=== PATIENT | female | born 1935 | race Native Hawaiian/Other Pacific Islander ===

== ENCOUNTER 2017-04-24 11:10 | Outpatient (CLI) | payer OTHER ==
[~2017-04-24 11:10] MED LIST: ASPIRIN325 M1 OR; CARV3.12 PO; CLOP75TA2 PO; HYDR25TA60 PO; LIPITOR80 MG PO; LUMIGAN0.01 % OP; MICRO-K10 MEQ OR; NEXIUM40 M1 PO; RANO500T PO; VITAMIN B-COMPLEX OR; VITAMIN D400 UNIT OR
== END 2017-04-24 16:00 | disposition home or self-care (01) ==
LOC: US 11:10
DX: I65.29 Occlusion and stenosis of unspecified carotid artery (principal)

== ENCOUNTER 2017-11-30 13:01 | Outpatient (CLI) | payer OTHER | END 2017-11-30 19:32 | disposition home or self-care (01) | LOC: MRI 13:01 | DX: M54.5 Low back pain (principal); M54.16 Radiculopathy, lumbar region ==

== ENCOUNTER 2018-05-08 11:27 | Outpatient (CLI) | payer OTHER ==
[2018-05-08 11:56] LABS: POTASSIUM 4.3 mmol/L (3.6-5.2)
== END 2018-05-08 20:05 | disposition home or self-care (01) ==
LOC: LABW 11:27
PROVIDERS: Internal Medicine Cardiovascular Disease
DX: Z79.899 Other long term (current) drug therapy (principal); R06.02 Shortness of breath
CPT/HCPCS: 36415; 80048; 83880

== ENCOUNTER 2018-06-12 11:52 | Outpatient (CLI) | payer OTHER ==
[2018-06-12 12:36] LABS: POTASSIUM 4.5 mmol/L (3.6-5.2)
== END 2018-06-12 22:29 | disposition home or self-care (01) ==
LOC: LABW 11:52
PROVIDERS: Internal Medicine Cardiovascular Disease
DX: Z79.899 Other long term (current) drug therapy (principal); R06.09 Other forms of dyspnea
CPT/HCPCS: 36415; 80048; 83880

== ENCOUNTER 2019-03-23 06:52 | Observation (INO) | payer OTHER ==
[~2019-03-23] VITALS: Ht 167.6 cm; Wt 72.1 kg
[2019-03-23] VITALS (11 sets, daily range): BP systolic 120–201; BP diastolic 51–80; TEMP 97.5–98.3; Ht 167.6 cm; Wt 72.1 kg
[2019-03-23 07:20] LABS: SODIUM 138 mmol/L (136-145)
[2019-03-23 08:06] LABS: PLATELET COUNT 271 K/uL (152-353)
--- NOTE | 2019-03-23 15:03 | NUR ---
PT AMBULATED IN [place] WITH ASSISTANCE OF CANE APPROX 100 FEET DENIED ANY DIZZINESS OR LIGHT HEADEDNESS.
== END 2019-03-23 16:25 | disposition home or self-care (01) ==
LOC: ED 06:52 → MED/SURG 07:30
PROVIDERS: ADMIT Hospitalist
DX: R55 Syncope and collapse (principal); N39.0 Urinary tract infection, site not specified
CPT/HCPCS: 36415; 80053; 81000; 82550; 83880; 84484; 85027; 85610; 85730; 87086; 87088; 93005; 96374; 99220; 99284; G0378; J0360; J0696; J1650

== ENCOUNTER 2020-03-10 08:41 | Outpatient (CLI) | payer OTHER ==
[~2020-03-10 08:41] MED LIST changes: +ASPIRIN ADULT325 MG PO; -ASPIRIN325 M1 OR; -MICRO-K10 MEQ OR; +POTA10CA3 PO; -VITAMIN B-COMPLEX OR; +VITAMIN B-COMPLEX PO
== END 2020-03-10 21:38 | disposition home or self-care (01) ==
LOC: INF 08:41
PROVIDERS: ATTEND Internal Medicine
DX: Z23 Encounter for immunization (principal)
CPT/HCPCS: 96372

== ENCOUNTER 2020-04-07 10:57 | Outpatient (CLI) | payer OTHER | END 2020-04-07 21:09 | disposition home or self-care (01) | LOC: INF 10:57 | PROVIDERS: ATTEND Internal Medicine | DX: Z23 Encounter for immunization (principal) | CPT/HCPCS: 96372 ==

== ENCOUNTER 2020-04-20 08:41 | Emergency (ER) | payer OTHER ==
[~2020-04-20] VITALS: Ht 167.6 cm; Wt 72.1 kg
[2020-04-20 08:42] VITALS: TEMP 98.1
[2020-04-20] MEDS ORDERED: CARV6.25 PO (09:42)
[2020-04-20] MEDS ORDERED: BIMATOPROST 0.03% OPTH (09:43)
[2020-04-20] MEDS ORDERED: CLOP75TA2 PO (09:45)
[2020-04-20] MEDS ORDERED: VITAMIN D400 UNIT PO (09:49)
[2020-04-20 09:56] LABS: PLATELET COUNT 301 K/uL (152-353)
[2020-04-20 10:03] LABS: POTASSIUM 4.3 mmol/L (3.6-5.2); SODIUM 138 mmol/L (136-145)
[2020-04-20 10:12] LABS: PARTIAL THROMBOPLASTIN TIME 24.3 SECONDS (24.5-33.6)
[2020-04-20 11:30] VITALS: BP 175/73
== END 2020-04-20 11:40 | disposition home or self-care (01) ==
LOC: ED 08:41
PROVIDERS: Family Medicine
DX: M13.88 Other specified arthritis, other site (principal); N39.0 Urinary tract infection, site not specified; G89.29 Other chronic pain; M54.5 Low back pain; Z79.82 Long term (current) use of aspirin; Z51.81 Encounter for therapeutic drug level monitoring
CPT/HCPCS: 36415; 80053; 81000; 84484; 85027; 85379; 85610; 85730; 87077; 87086; 87088; 87186; 93005; 96365; 99284; J0696

== ENCOUNTER 2020-08-03 05:07 | Observation (INO) | payer OTHER ==
[~2020-08-03 05:07] MED LIST changes: +BIMATOPROST 0.03% OPTH; +CARV6.25 PO; +VITAMIN D400 UNIT PO
[2020-08-10 16:25] LABS: POTASSIUM 3.9 mmol/L (3.6-5.2); SODIUM 139 mmol/L (136-145)
[2020-08-10 16:27] LABS: PARTIAL THROMBOPLASTIN TIME 25.1 SECONDS (24.5-33.6)
[2020-08-10 16:28] LABS: PLATELET COUNT 206 K/uL (152-353)
[2020-08-11 14:40] LABS: PLATELET COUNT 165 K/uL (152-353); POTASSIUM 3.5 mmol/L (3.6-5.2)
== END 2020-08-04 12:00 | disposition home or self-care (01) ==
LOC: ED 05:07 → MED/SURG 08:20
PROVIDERS: ADMIT Emergency Medicine Emergency Medical Services; ATTEND Internal Medicine
DX: R07.89 Other chest pain (principal); K21.9 Gastro-esophageal reflux disease without esophagitis; I25.10 Atherosclerotic heart disease of native coronary artery without angina pectoris; I10 Essential (primary) hypertension
CPT/HCPCS: 36415; 80048; 80053; 81000; 82550; 83735; 83880; 84484; 85027; 85379; 85610; 85730; 87635; 93005; 94760; 96360; 96366; 96372; 96375; 99220; 99284; G0378; U0003

== ENCOUNTER 2020-09-04 17:03 | Inpatient (IN) | payer OTHER ==
[2020-09-04] VITALS (8 sets, daily range): BP systolic 113–165; BP diastolic 52–78; TEMP 97.8–98.7; Ht 167.6 cm; Wt 68.2 kg
[~2020-09-04] VITALS: Ht 167.6 cm; Wt 68.2 kg
[2020-09-04 17:32] LABS: PLATELET COUNT 224 K/uL (152-353)
[2020-09-04 17:37] LABS: POTASSIUM 3.7 mmol/L (3.6-5.2); SODIUM 133 mmol/L (136-145)
[2020-09-04 17:47] LABS: PARTIAL THROMBOPLASTIN TIME 22.8 SECONDS (24.5-33.6)
--- NOTE | 2020-09-04 23:52 | NUR ---
PT CONTINUES TO COMPLAIN OF UPPER ABDOMINAL PAIN AND CHEST TIGHTNESS. AWAITING ORDERS FROM DR. VILLALTA.
[2020-09-05] VITALS (7 sets, daily range): BP systolic 102–155; BP diastolic 45–67; TEMP 96.9–100
--- NOTE | 2020-09-05 01:51 | NUR ---
PATIENT REPORTED RIGHT FLANK PAIN AND BELCHING. ER DOCTOR WAS CALLED. MD ORDERED TORADOL 15MG, AND ANOTHER DOSE OF SIMETHICONE 80MG
[2020-09-05 09:16] LABS: PLATELET COUNT 189 K/uL (152-353)
[2020-09-05 09:23] LABS: POTASSIUM 3.4 mmol/L (3.6-5.2)
--- NOTE | 2020-09-05 14:08 | NUR ---
MD NOTIFED PT UNABLE TO VOID AND UNABLE TO KEEP PO FLIUDS DOWN. NEW ORDERS GIVEN FOR IN AND OUT CATH AND NS AT 125ML/HR X 1 LITER.
--- NOTE | 2020-09-05 17:49 | NUR ---
NOTIFIED OF URINE RESULTS. TO REVIEW PUT IN ORDERS
--- NOTE | 2020-09-06 02:22 | NUR ---
09/05/202043: PT VOMITING. ZOFRAN 4 MG IV GIVEN. PT HAS IV FLUIDS RUNNING AT THIS TIME.
--- NOTE | 2020-09-06 02:23 | NUR ---
0220: PT SLEEPING NO FURTHER VOMITING NOTED. NO COMPLAINTS VOICED.
[2020-09-06 03:57] VITALS: BP 107/58; TEMP 98.3
[2020-09-06 04:46] LABS: POTASSIUM 4.3 mmol/L (3.6-5.2)
[2020-09-06 04:52] LABS: PLATELET COUNT 144 K/uL (152-353)
--- NOTE | 2020-09-06 06:36 | NUR ---
0545: PT CALLED FOR ASSIST TO BEDSIDE COMMODE. PT TOO WEAK TO GET OUT OF BED EVEN WITH ASSIST OF 2. PT CONFUSED DIDN'T UNDERSTAND DIRECTION NOT TO GET OUT OF BED. PT KEPT TRYING TO SIT ON EDGE OF BED. REPOSITIONED PT IN BED AND TURNED ON BED ALARM.
[2020-09-06 08:00] VITALS: BP 100/41; TEMP 98
[2020-09-06 12:00] VITALS: BP 92/42; TEMP 97.3
[2020-09-06 16:00] VITALS: BP 98/48; TEMP 97.4
[2020-09-06 20:00] VITALS: BP 113/42; TEMP 97.9
[2020-09-07] VITALS: BP 113/42; TEMP 98.1
[2020-09-07 04:00] VITALS: BP 126/57; TEMP 98.3
--- NOTE | 2020-09-07 06:48 | NUR ---
Pt rested through the night with no c/o voiced. No s/s of distress observed. Call light in easy reach.
--- NOTE | 2020-09-07 07:50 | NUR ---
PT LAYING IN BED RESTING QUIETLY IN HF WITH EYES CLOSED. BREATHING NON LABORED AND EVEN. NO DISTRESS NOTED.
[2020-09-07 08:00] VITALS: BP 131/53; TEMP 98.2
[2020-09-07 08:22] LABS: PLATELET COUNT 150 K/uL (152-353)
[2020-09-07 08:55] LABS: POTASSIUM 3.8 mmol/L (3.6-5.2)
--- NOTE | 2020-09-07 09:51 | NUR ---
PT UP ON BSC. AM MEDS GIVEN. PT TOLERATED WELL. PT DENIES ANY CHEST PAIN OR DISCOMFORT AT THIS TIME. AM ASSESSMENT COMPLETED. DR. CORDERO IN AT PT'S BEDSIDE EXPLAINING TO PT SHE WILL BE DISCHARGED AND TO FOLLOW UP WITH DR. FOLEY AND CON'T ANTIBIOTIC FOR UTI. PT VERBALIZES UNDERSTANDING.
--- NOTE | 2020-09-07 12:46 | NUR ---
PT TELEMETRY AND IV DC'D AT THIS TIME. NO REDNESS OR SWELLING NOTED. PT GIVEN DISCHARGE INSTRUCTIONS.PT INSTRUCTED TO CON'T ALL ROUTINE HOME MEDICATIONS, AND START NEW ANTIBIOTIC CEFDINIR FOR UTI AND TAKE UNTIL ALL GONE. PT VERBALIZES UNDERSTANDING. PT ENCOURAGED TO TAKE ANTIBIOTIC WITH FOOD TO HELP AVOID UPSET STOMACH OR NAUSEA. PT GIVEN APPT DATE AND TIME FOR FOLLOW UP WITH [facility] ON September AT 1030. PT IS TO FOLLOW UP WITH DR. FOLEY TOMORROW 09/08/20. INSTRUCTED PT THAT HOSPITAL STAFF OR DR. FOLEY'S OFFICE WILL CALL HER WITH APPT TIME. PT VERBALIZES UNDERSTANDING. PT DC'D VIA W/C AT THIS TIME. PT DENIES ANY FURTHER QUESTIONS.
--- NOTE | 2020-09-07 17:26 | NUR ---
SPOKE WITH PT'S SON AND DR. FOLEY APPT TIME GIVEN AT THIS TIME AND INFORMED PT'S ANTIBIOTICS IS READY AT [facility] [place]
== END 2020-09-07 12:47 | disposition home or self-care (01) | DRG 690 ==
LOC: ED 17:11 → MED/SURG 18:30
PROVIDERS: Emergency Medicine; ADMIT Internal Medicine Endocrinology, Diabetes & Metabolism; ATTEND Internal Medicine Endocrinology, Diabetes & Metabolism
DX: N30.80 Other cystitis without hematuria (principal); R07.89 Other chest pain; I25.10 Atherosclerotic heart disease of native coronary artery without angina pectoris; I10 Essential (primary) hypertension; D72.828 Other elevated white blood cell count; E78.49 Other hyperlipidemia; E11.9 Type 2 diabetes mellitus without complications; E87.6 Hypokalemia; K21.9 Gastro-esophageal reflux disease without esophagitis
CPT/HCPCS: 36415; 80048; 80053; 81000; 82550; 82948; 83880; 84484; 85007; 85027; 85379; 85610; 85730; 87077; 87086; 87088; 87185; 87635; 93005; 96361; 96365; 96374; 96375; 96376; 99284; J0696; J1885; J2270; J2405; U0003

== ENCOUNTER 2021-01-03 08:30 | Outpatient (CLI) | payer OTHER ==
[~2021-01-03 08:30] MED LIST changes: +LEVOFLOXACIN500 MG PO
[2021-01-03 09:15] LABS: PLATELET COUNT 223 K/uL (152-353)
[2021-01-03 09:46] LABS: POTASSIUM 4.6 mmol/L (3.6-5.2)
== END 2021-01-03 19:45 | disposition home or self-care (01) ==
LOC: CT 08:30
PROVIDERS: ATTEND Internal Medicine
DX: N18.31 Chronic kidney disease, stage 3a (principal); Z79.899 Other long term (current) drug therapy; N20.0 Calculus of kidney; R79.89 Other specified abnormal findings of blood chemistry
CPT/HCPCS: 36415; 80053; 81000; 82024; 82043; 82088; 82306; 82330; 82570; 82607; 82728; 82746; 83036; 83540; 83550; 83735; 83835; 83970; 84100; 84155; 84244; 84439; 84443; 85027; 85652; 86038; 87088

== ENCOUNTER 2021-01-20 23:46 | Emergency (ER) | payer OTHER ==
[~2021-01-20] VITALS: Ht 167.6 cm; Wt 63.5 kg
[2021-01-21 00:14] LABS: PLATELET COUNT 268 K/uL (152-353)
[2021-01-21 00:24] LABS: POTASSIUM 3.9 mmol/L (3.6-5.2)
[2021-01-21 00:26] LABS: PARTIAL THROMBOPLASTIN TIME 24.2 SECONDS (24.5-33.6)
[2021-01-21 05:50] VITALS: BP 160/65; TEMP 98
== END 2021-01-21 05:50 | disposition short-term general hospital (02) ==
LOC: ED 23:46
PROVIDERS: Emergency Medicine
DX: I20.0 Unstable angina (principal); R94.31 Abnormal electrocardiogram [ECG] [EKG]; R09.89 Other specified symptoms and signs involving the circulatory and respiratory systems; Z11.52 Encounter for screening for COVID-19
CPT/HCPCS: 36415; 80053; 83880; 84484; 85027; 85379; 85610; 85730; 87635; 93005; 96374; 96375; 99284; J2270; J2405; Q9963; U0003

== ENCOUNTER 2021-03-15 10:47 | Outpatient (CLI) | payer OTHER ==
[~2021-03-15 10:47] MED LIST changes: +ASPIRIN ADULT L81 M1 PO; -ASPIRIN ADULT325 MG PO
[2021-03-18] MEDS ORDERED: LUMIGAN0.01 % OPTH (08:26)
[2021-03-18] MEDS ORDERED: NITROSTAT0.4 MG SL (08:29)
[2021-03-18] MEDS ORDERED: RED YEAST RICE PO (08:31)
[2021-03-18] MEDS ORDERED: OLMESARTAN MEDO20 MG PO (08:32)
[2021-03-18] MEDS ORDERED: LEVAQUIN250 MG PO (13:25)
== END 2021-03-15 19:19 | disposition home or self-care (01) ==
LOC: LABW 10:47
PROVIDERS: ATTEND Internal Medicine
DX: N39.0 Urinary tract infection, site not specified (principal)
CPT/HCPCS: 81000; 87086; 87088

== ENCOUNTER 2021-04-07 10:21 | Emergency (ER) | payer OTHER ==
[~2021-04-07] VITALS: Ht 162.6 cm; Wt 63.0 kg
[2021-04-07 10:21] VITALS: TEMP 97.1
[~2021-04-07 10:21] MED LIST changes: +LEVAQUIN250 MG PO; +LUMIGAN0.01 % OPTH; +NITROSTAT0.4 MG SL; +OLMESARTAN MEDO20 MG PO; +RED YEAST RICE PO
[2021-04-07 10:40] LABS: PLATELET COUNT 211 K/uL (152-353)
[2021-04-07 10:55] LABS: POTASSIUM 3.7 mmol/L (3.6-5.2)
[2021-04-07 12:05] VITALS: BP 133/62
== END 2021-04-07 12:35 | disposition home or self-care (01) ==
LOC: ED 10:21
PROVIDERS: Emergency Medicine
DX: K59.09 Other constipation (principal); N39.0 Urinary tract infection, site not specified
CPT/HCPCS: 80053; 81000; 83880; 84484; 85027; 87077; 87086; 87088; 87185; 93005; 99283

== ENCOUNTER 2021-07-11 08:38 | Emergency (ER) | payer OTHER ==
[~2021-07-11] VITALS: Ht 162.6 cm; Wt 63.0 kg
[2021-07-11 08:54] VITALS: TEMP 97
[2021-07-11 09:41] LABS: PLATELET COUNT 186 K/uL (152-353)
[2021-07-11 09:54] LABS: POTASSIUM 3.7 mmol/L (3.6-5.2)
[2021-07-11 14:00] VITALS: BP 144/68
== END 2021-07-11 14:00 | disposition home or self-care (01) ==
LOC: ED 08:38
PROVIDERS: Emergency Medicine Emergency Medical Services
DX: K80.20 Calculus of gallbladder without cholecystitis without obstruction (principal)
CPT/HCPCS: 36415; 80053; 81000; 82150; 83690; 83735; 84484; 85027; 87077; 87086; 87088; 87185; 87186; 93005; 96360; 96361; 96374; 96375; 99284; J0360; J1885; J2405; J3490; Q9963

== ENCOUNTER 2021-08-12 13:29 | Emergency (ER) | payer OTHER ==
[~2021-08-12] VITALS: Ht 162.6 cm; Wt 63.0 kg
[2021-08-12 14:18] LABS: PLATELET COUNT 126 K/uL (152-353)
[2021-08-12 14:32] LABS: POTASSIUM 4.1 mmol/L (3.6-5.2)
[2021-08-12 17:00] VITALS: BP 117/47; TEMP 98.1
== END 2021-08-12 17:00 | disposition home or self-care (01) ==
LOC: ED 13:29
PROVIDERS: Emergency Medicine
DX: E86.0 Dehydration (principal); D64.89 Other specified anemias; Z90.49 Acquired absence of other specified parts of digestive tract
CPT/HCPCS: 80053; 81002; 85027; 93005; 96360; 96374; 96375; 99284; J1885; J2405

== ENCOUNTER 2021-08-13 10:14 | Emergency (ER) | payer OTHER ==
[~2021-08-13] VITALS: Ht 162.6 cm; Wt 63.0 kg
[2021-08-13 10:14] VITALS: TEMP 99.1
[2021-08-13 10:50] LABS: PLATELET COUNT 144 K/uL (152-353)
[2021-08-13 10:51] LABS: POTASSIUM 4.2 mmol/L (3.6-5.2); SODIUM 132 mmol/L (136-145)
[2021-08-13 12:00] VITALS: BP 154/63
== END 2021-08-13 12:05 | disposition home or self-care (01) ==
LOC: ED 10:14
PROVIDERS: Emergency Medicine
DX: R53.81 Other malaise (principal); E87.1 Hypo-osmolality and hyponatremia; R06.02 Shortness of breath
CPT/HCPCS: 36415; 80048; 83880; 84484; 85027; 93005; 99283

== ENCOUNTER → 2021-10-01 | Emergency (ER) | payer OTHER ==
[~2021-10-01] VITALS: Ht 162.6 cm; Wt 63.5 kg
[2021-10-01 22:45] VITALS: BP 153/81; TEMP 98.5
== END ==
LOC: ED 19:49
PROC: 2W38X1Z Immobilization of Right Upper Extremity using Splint (ICD-10-PCS; principal; 2021-10-01)
DX: S40.011A Contusion of right shoulder, initial encounter (principal); W18.39XA Other fall on same level, initial encounter; Y92.090 Kitchen in other non-institutional residence as the place of occurrence of the external cause
CPT/HCPCS: 96372; 99283; J2175; J2550

== ENCOUNTER 2021-11-15 09:35 | Outpatient (CLI) | payer OTHER ==
[2021-11-15 10:31] LABS: PLATELET COUNT 285 K/uL (152-353)
[2021-11-15 11:36] LABS: POTASSIUM 4.1 mmol/L (3.6-5.2)
== END 2021-11-15 19:31 | disposition home or self-care (01) ==
LOC: LABW 09:35
PROVIDERS: ATTEND Internal Medicine
DX: I12.9 Hypertensive chronic kidney disease with stage 1 through stage 4 chronic kidney disease, or unspecified chronic kidney disease (principal); N18.32 Chronic kidney disease, stage 3b; R53.83 Other fatigue; E53.8 Deficiency of other specified B group vitamins; Z79.899 Other long term (current) drug therapy; R79.89 Other specified abnormal findings of blood chemistry
CPT/HCPCS: 36415; 80053; 81002; 82043; 82306; 82330; 82570; 82607; 82728; 82746; 83036; 83540; 83550; 83735; 83970; 84100; 84156; 84436; 84443; 85027; 85652; 86038

== ENCOUNTER 2022-04-29 15:14 | Emergency (ER) | payer OTHER ==
[~2022-04-29] VITALS: Ht 162.6 cm; Wt 63.5 kg
[2022-04-29 15:39] LABS: PLATELET COUNT 177 K/uL (152-353)
[2022-04-29 15:48] LABS: POTASSIUM 3.4 mmol/L (3.6-5.2)
[2022-04-29 15:56] LABS: PARTIAL THROMBOPLASTIN TIME 24.1 SECONDS (24.5-33.6)
[2022-04-29 17:30] VITALS: BP 148/51; TEMP 98.2
== END 2022-04-29 17:35 | disposition home or self-care (01) ==
LOC: ED 15:14
PROVIDERS: Emergency Medicine
DX: R53.1 Weakness (principal); I48.91 Unspecified atrial fibrillation; R60.0 Localized edema; W18.39XA Other fall on same level, initial encounter; Y92.098 Other place in other non-institutional residence as the place of occurrence of the external cause
CPT/HCPCS: 36415; 80053; 81002; 82550; 83880; 84484; 85027; 85610; 85730; 93005; 99283

== ENCOUNTER 2022-07-11 08:59 | Outpatient (CLI) | payer OTHER ==
[~2022-07-11] VITALS: Ht 167.6 cm; Wt 61.2 kg
[2022-07-11 09:06] VITALS: BP 147/64; TEMP 97.7
[2022-07-11 10:03] VITALS: BP 153/57; TEMP 97.5
== END 2022-07-11 18:54 | disposition home or self-care (01) ==
LOC: INF 08:59
PROVIDERS: ATTEND Internal Medicine
DX: D50.8 Other iron deficiency anemias (principal)
CPT/HCPCS: 96365; J1439

== ENCOUNTER 2022-08-09 14:46 | Emergency (ER) | payer OTHER ==
[~2022-08-09] VITALS: Ht 162.6 cm; Wt 63.5 kg
[2022-08-09 14:57] VITALS: BP 178/52; TEMP 98.2
== END 2022-08-09 17:38 | disposition home or self-care (01) ==
LOC: ED 14:46
DX: M25.471 Effusion, right ankle (principal); M19.071 Primary osteoarthritis, right ankle and foot
CPT/HCPCS: 99283

== ENCOUNTER 2022-11-17 10:06 | Outpatient (CLI) | payer OTHER | END 2022-11-17 19:47 | disposition home or self-care (01) | LOC: RAD 10:06 | PROVIDERS: ATTEND Nurse Practitioner | DX: R07.81 Pleurodynia (principal) ==